=== PATIENT | male | born 1980 | race Caucasian/White ===

== ENCOUNTER 2021-10-08 21:08 | Emergency (ER) | payer MEDICAID ==
[~2021-10-08] VITALS: Ht 175.3 cm; Wt 77.1 kg
--- NOTE | 2021-10-08 21:30 | NUR ---
Dr El at bedside for MSE.
[2021-10-08] MEDS ORDERED: LORAZEPAM 0.5 MG TABLET PO ONE (21:45)
[2021-10-08] MEDS ORDERED: LORAZEPAM 1 MG TABLET ONE (21:48)
--- NOTE | 2021-10-08 21:50 | NUR ---
Patient discharged to home in stable condition. Written and verbal after care instructions given. Patient verbalizes understanding of instructions. Stressed follow up or return to ER for worsening s/s. pt ambulated with steady gait. no sob. no chest pain. pt has a ride home.
[2021-10-08 21:53] VITALS: BP 138/67
== END 2021-10-08 21:54 | disposition home or self-care (01) ==
LOC: ER 21:08
DX: Z13.858 Encounter for screening for other nervous system disorders (principal); F31.9 Bipolar disorder, unspecified; F15.90 Other stimulant use, unspecified, uncomplicated; F14.90 Cocaine use, unspecified, uncomplicated; R03.0 Elevated blood-pressure reading, without diagnosis of hypertension
CPT/HCPCS: A4663